=== PATIENT | male | born 1950 | race Caucasian/White ===

== ENCOUNTER 2020-08-05 13:18 | Outpatient (CLI) | payer MEDICARE, SELFPAY ==
[2020-08-05 14:08] LABS: SARS-CoV-2 Ag Negative (Negative)
== END 2020-08-05 13:19 | disposition home or self-care (01) ==
LOC: CHSLAB 13:24
PROVIDERS: PCP Physician Assistant; Visit Provider Physician Assistant
DX: Z20.822 Contact with and (suspected) exposure to COVID-19 (principal)
CPT/HCPCS: 87426; C9803